=== PATIENT | male | born 1970 | race Caucasian/White ===

== ENCOUNTER 2020-11-18 00:10 | Emergency (ER) | payer OTHER ==
[~2020-11-18] VITALS: Ht 188 cm; Wt 104.3 kg
[2020-11-18 00:17] VITALS: BP 153/92
--- NOTE | 2020-11-18 00:17 | NUR ---
TO BED AMBULATORY
--- NOTE | 2020-11-18 00:47 | NUR ---
SLING SIZE LARGE PLACED ON PT R ARM, FASTENED TO SIZE
--- NOTE | 2020-11-18 01:09 | NUR ---
PATIENT TAKEN TO CT VIA W/C.
--- NOTE | 2020-11-18 01:20 | NUR ---
PATIENT PRESENTS TO ED WITH C/O RIGHT ARM NUMBNESS. DENIES N/V/D; SKIN IS PINK/WARM/DRY; AAOX4 WITH EVEN AND STEADY GAIT; LUNGS CLEAR BL; HR EVEN AND REGULAR; PT DENIES ANY FEVER, CP, SOB, OR COUGH AT THIS TIME; PATIENT STATES PAIN OF 0/10 AT THIS TIME; VSS ER MD MADE AWARE OF PT STATUS.
[2020-11-18 02:25] VITALS: BP 153/92
--- NOTE | 2020-11-18 02:25 | NUR ---
Patient discharged with v/s stable. Written and verbal after care instructions given and explained. Patient verbalized understanding. Ambulatory with steady gait. All questions addressed prior to discharge. Advised to follow up with PMD.
[2020-11-18] MEDS ORDERED: NAPR-54 PO (02:54)
== END 2020-11-18 02:25 | disposition home or self-care (01) ==
LOC: MED 00:10
DX: S13.4XXA Sprain of ligaments of cervical spine, initial encounter (principal); X50.9XXA Other and unspecified overexertion or strenuous movements or postures, initial encounter; Y93.89 Activity, other specified; Y92.89 Other specified places as the place of occurrence of the external cause; Y99.8 Other external cause status
CPT/HCPCS: 72125; 99284